=== PATIENT | female | born 1990 | race Caucasian/White ===

== ENCOUNTER 2019-08-08 15:57 | Emergency (ER) | payer MEDICAID ==
[~2019-08-08] VITALS: Ht 170.2 cm; Wt 68.0 kg
[2019-08-08 16:06] VITALS: BP 118/56
--- NOTE | 2019-08-08 16:43 | NUR ---
C/O VAGINAL BLEEDING X YESTERDAY CONSUMING 4 PADS MODERATELY SOAK WITH BROWNISH TO LIGHT RED COLORED VAGINAL DISCHARGE, RIGHT LOWER ABDOMINAL PAIN X TODAY. LMP 07/29/19. C/O COUGH X 1 MONTH .PT REPORTED SHE SMOKED WEED, DRANK ALCOHOL LAST NIGHT. MED HX: BREAST AUGMENTATION.PT AWAKE ,ALERT, AFIBRILE ,AMBULATORY WITH STEADY GAIT. NABS , NONTENDER ABDOMEN. PMHX NONE MEDS . NONE
[2019-08-08] MEDS ORDERED: KETOROLAC 30 MG/ML VIAL IVP ONE (17:00)
[2019-08-08] MEDS ORDERED: NACL 0.9% 1,000 ML IV ONE (17:00)
--- NOTE | 2019-08-08 17:19 | NUR ---
NAJMA MIKE AND TRIXIE AT BEDSIDE LAURA IV AND MEDS.
--- NOTE | 2019-08-08 17:30 | NUR ---
PT TO CT SCAN VIA WHEELCHAIR.
[2019-08-08 17:35] LABS: BASOPHILS # (AUTO) 0.1 K/uL (0.00-0.22); BASOPHILS % (AUTO) 0.9 % (0.0-2.0); EOSINOPHILS # (AUTO) 0.1 K/uL (0-0.4); EOSINOPHILS % (AUTO) 1.3 % (0.0-4.0); HEMATOCRIT 42.9 % (36-48); HEMOGLOBIN 14.5 g/dL (12.0-16.0); LYMPHOCYTES # (AUTO) 2.6 K/uL (2.5-16.5); LYMPHOCYTES % (AUTO) 36.6 % (20.5-51.1); MEAN CORPUSCULAR HEMOGLOBIN 32 pg (27-31); MEAN CORPUSCULAR HGB CONC 34 g/dL (33-37); MEAN CORPUSCULAR VOLUME 94.7 fL (80-94); MONOCYTES # (AUTO) 0.5 K/uL (0.8-1.0); MONOCYTES % (AUTO) 6.6 % (1.7-9.3); NEUTROPHILS # (AUTO) 3.8 K/uL (1.8-7.7); NEUTROPHILS % (AUTO) 54.6 % (42.2-75.2); PLATELET COUNT (AUTO) 251 K/uL (140-450); RED BLOOD CELL COUNT(AUTO) 4.53 MIL/uL (4.20-5.40); RED CELL DISTRIBUTION WIDTH 13.3 % (11.6-13.7)
--- NOTE | 2019-08-08 17:40 | NUR ---
PT BACK FROM CT SCAN VIA WHEELCHAIR.
[2019-08-08 17:50] VITALS: BP 120/60
[2019-08-08 17:55] LABS: ALBUMIN 4.8 g/dL (3.4-5.0); ANION GAP 14.2 (8-16); CARBON DIOXIDE 26.3 mmol/L (21-32); POTASSIUM 3.5 mmol/L (3.5-5.1); TOTAL BILIRUBIN 0.8 mg/dL (0.0-1.0)
[2019-08-08 18:04] LABS: APPEARANCE,URINE CLEAR (CLEAR); BILIRUBIN,URINE NEGATIVE (NEGATIVE); BLOOD, URINE 3+ (NEGATIVE); COLOR,URINE YELLOW (YELLOW); LEUKOCYTE ESTERASE ,URINE TRACE (NEGATIVE); NITRITE, URINE NEGATIVE (NEGATIVE); PH,URINE 6.5 (5.0-9.0); UGLUCOSE NEGATIVE (NEGATIVE)
[2019-08-08 18:18] LABS: RBC,URINE 50-80 /HPF (0-5)
--- NOTE | 2019-08-08 19:02 | NUR ---
GAVE REPORT TO NAJMA BATRES.
[2019-08-08] MEDS ORDERED: cefTRIAXone 1,000 MG VIAL ONE (19:13)
--- NOTE | 2019-08-08 19:17 | NUR ---
PELVIC DONE. IV ANTIBIOTICS STARTED
--- NOTE | 2019-08-08 19:50 | NUR ---
PT DISCHARGED BY DOCTOR.
--- NOTE | 2019-08-10 10:29 | NUR ---
Late entry. Confirmed with RN that Rocephin IV completed at 1950
== END 2019-08-08 19:50 | disposition home or self-care (01) ==
LOC: MED 15:57
DX: N73.9 Female pelvic inflammatory disease, unspecified (principal); F17.200 Nicotine dependence, unspecified, uncomplicated; F12.90 Cannabis use, unspecified, uncomplicated; Z98.890 Other specified postprocedural states; Z71.6 Tobacco abuse counseling
CPT/HCPCS: 36415; 74176; 80053; 81001; 81025; 85025; 87040; 87086; 87210; 96365; 96375; 99284; J0696; J1885; J7030

== ENCOUNTER 2021-03-16 14:08 | Emergency (ER) | payer SELFPAY ==
[~2021-03-16] VITALS: Ht 170.2 cm; Wt 81.6 kg
[2021-03-16 14:19] VITALS: BP 153/96
[2021-03-16] MEDS ORDERED: LORazepam 0.5 MG TAB PO ONE (14:35)
[2021-03-16 15:30] LABS: BASOPHILS # (AUTO) 0.1 K/uL (0.00-0.22); BASOPHILS % (AUTO) 0.7 % (0.0-2.0); EOSINOPHILS # (AUTO) 0.1 K/uL (0-0.4); EOSINOPHILS % (AUTO) 0.9 % (0.0-4.0); HEMATOCRIT 43.5 % (36-48); HEMOGLOBIN 14.7 g/dL (12.0-16.0); LYMPHOCYTES # (AUTO) 2.4 K/uL (2.5-16.5); LYMPHOCYTES % (AUTO) 31.7 % (20.5-51.1); MEAN CORPUSCULAR HEMOGLOBIN 30 pg (27-31); MEAN CORPUSCULAR HGB CONC 34 g/dL (33-37); MONOCYTES # (AUTO) 0.6 K/uL (0.8-1.0); MONOCYTES % (AUTO) 8.4 % (1.7-9.3); NEUTROPHILS # (AUTO) 4.5 K/uL (1.8-7.7); NEUTROPHILS % (AUTO) 58.3 % (42.2-75.2); PLATELET COUNT (AUTO) 245 K/uL (140-450); RED BLOOD CELL COUNT(AUTO) 4.84 MIL/uL (4.20-5.40); RED CELL DISTRIBUTION WIDTH 13.3 % (11.6-13.7); WHITE BLOOD COUNT (AUTO) 7.7 K/uL (4.8-10.8)
[2021-03-16 15:50] LABS: ALBUMIN 4.4 g/dL (3.4-5.0); ANION GAP 18.2 (8-16); CARBON DIOXIDE 22.3 mmol/L (21-32); CREATININE 0.9 mg/dL (0.6-1.3); POTASSIUM 3.5 mmol/L (3.5-5.1); TOTAL BILIRUBIN 0.5 mg/dL (0.0-1.0)
[2021-03-16] MEDS ORDERED: HYDR-637 PO (16:05)
[2021-03-16] MEDS ORDERED: ONDA-24 SL (16:05)
[2021-03-16] MEDS ORDERED: ONDANSETRON 4 MG ODT PO ONE (16:10)
[2021-03-16 16:53] VITALS: BP 130/85
== END 2021-03-16 16:53 | disposition short-term general hospital (02) ==
LOC: MED 14:08
DX: R07.89 Other chest pain (principal); F14.10 Cocaine abuse, uncomplicated; Z79.899 Other long term (current) drug therapy
CPT/HCPCS: 36415; 71045; 80053; 81002; 81025; 84484; 85025; 93005; 99285; Q0092; Q0162

== ENCOUNTER 2021-10-15 05:50 | Emergency (ER) | payer MEDICAID ==
[~2021-10-15] VITALS: Ht 170.2 cm; Wt 82.1 kg
[~2021-10-15 05:50] MED LIST: HYDR-637 PO; ONDA-188 SL
[2021-10-15 05:56] VITALS: BP 125/108
--- NOTE | 2021-10-15 06:02 | NUR ---
PT AMBULATED TO BED 6
[2021-10-15 06:08] VITALS: BP 125/108
--- NOTE | 2021-10-15 06:09 | NUR ---
30 Y/O FEMALE BIBS, C/O DOG BITE TO RIGHT HAND X1 HR AGO. APPROX 1 INCH LAC; BLEEDING CONTROLLED. CMS INTACT; 12/09 PAIN. A/OX4, GCS-15. UNLABORED BREATHING, SPEAKING IN FULL SENTENCES, PT IS AMBULATORY W/O ASSISTANCE. PT SEATED IN BED WITH HOB RAISED, BED IN LOWEST SETTING, AND RAIL UP X1. DENIES PMH/RX NKA
--- NOTE | 2021-10-15 06:09 | NUR ---
ER MD AT BEDSIDE PERFORMING PROCEDURE
[2021-10-15] MEDS ORDERED: IBUPROFEN 600 MG TAB PO ONE (06:25)
[2021-10-15] MEDS ORDERED: IBUP-2213 PO (06:27)
[2021-10-15] MEDS ORDERED: AMOX1TAB8 PO (06:27)
--- NOTE | 2021-10-15 07:17 | NUR ---
ANIMAL BITE REPORT FAXED TO [facility]
== END 2021-10-15 07:00 | disposition home or self-care (01) ==
LOC: MED 05:50
DX: S61.411A Laceration without foreign body of right hand, initial encounter (principal); W54.0XXA Bitten by dog, initial encounter; Y93.89 Activity, other specified; Y92.89 Other specified places as the place of occurrence of the external cause; Y99.8 Other external cause status
CPT/HCPCS: 90471; 90715; 99283

== ENCOUNTER 2021-10-17 11:29 | Emergency (ER) | payer MEDICAID ==
[~2021-10-17] VITALS: Ht 170.2 cm; Wt 81.6 kg
[~2021-10-17 11:29] MED LIST changes: +AMOX1TAB8 PO; +IBUP-2213 PO
[2021-10-17 11:41] VITALS: BP 126/99
[2021-10-17 12:22] VITALS: BP 123/74
== END 2021-10-17 12:22 | disposition home or self-care (01) ==
LOC: MED 11:29
DX: S61.451A Open bite of right hand, initial encounter (principal); Z79.1 Long term (current) use of non-steroidal anti-inflammatories (NSAID); Z79.2 Long term (current) use of antibiotics; Z79.899 Other long term (current) drug therapy; W54.0XXA Bitten by dog, initial encounter; Y93.89 Activity, other specified; Y92.89 Other specified places as the place of occurrence of the external cause; Y99.8 Other external cause status
CPT/HCPCS: 99283

== ENCOUNTER 2021-10-23 13:49 | Emergency (ER) | payer MEDICAID ==
[~2021-10-23] VITALS: Ht 170.2 cm; Wt 82.6 kg
[2021-10-23 13:57] VITALS: BP 123/67
--- NOTE | 2021-10-23 14:03 | NUR ---
PT AMB TO BED 3.
[2021-10-23] MEDS ORDERED: BACI28.43 TP (14:17)
[2021-10-23] MEDS: BACITRACIN OINT 500 UNITS/GM PKT TP ONE (14:23)
--- NOTE | 2021-10-23 14:35 | NUR ---
PT'S WOUND CLEANED AND DRESSED WITH NON-ADHERENT GAUZE ROLL AND WRAPPED WITH 1" LEN WRAP.
--- NOTE | 2021-10-23 14:50 | NUR ---
Patient discharged with v/s stable. Written and verbal after care instructions FOR WOUND CLOSURE REMOVAL, CARE AFTER AND ANIMAL BITE given and explained. Patient alert, oriented and verbalized understanding of instructions. Ambulatory with steady gait. All questions addressed prior to discharge. ID band removed. Patient advised to follow up with PMD. Rx of BACITRACIN ZINC given. Opportunity to ask questions provided and answered.
--- NOTE | 2021-10-23 14:53 | NUR ---
The patient's care was reviewed and supervised by Kalie Ornelas RN.
== END 2021-10-23 14:50 | disposition home or self-care (01) ==
LOC: MED 13:49
DX: S61.411D Laceration without foreign body of right hand, subsequent encounter (principal); Z48.02 Encounter for removal of sutures; Z79.2 Long term (current) use of antibiotics; Z79.1 Long term (current) use of non-steroidal anti-inflammatories (NSAID); Z79.899 Other long term (current) drug therapy; W22.8XXD Striking against or struck by other objects, subsequent encounter
CPT/HCPCS: 99282

== ENCOUNTER 2022-03-17 22:09 | Emergency (ER) | payer MEDICAID ==
[~2022-03-17] VITALS: Ht 170.2 cm; Wt 82.3 kg
[~2022-03-17 22:09] MED LIST changes: +BACI28.43 TP
[2022-03-17 22:24] VITALS: BP 100/87
--- NOTE | 2022-03-17 22:33 | NUR ---
WALKED IN C/O MID/ LOW BACK PAIN SINCE FRIDAY. PT STATES SHE ALSO STARTED HER PERIOD THE SAME DAY. +V X4/D. +DISCOMFORT WITH URINATION DESCRIBED A DULL ACHE. PT TOOK MOTRIN @1800 WITH NO RELIEF. PMH NONE
[2022-03-17 23:00] LABS: APPEARANCE,URINE CLEAR (CLEAR); BILIRUBIN,URINE NEGATIVE (NEGATIVE); BLOOD, URINE 2+ (NEGATIVE); COLOR,URINE YELLOW (YELLOW); LEUKOCYTE ESTERASE ,URINE TRACE (NEGATIVE); NITRITE, URINE NEGATIVE (NEGATIVE); UGLUCOSE NEGATIVE (NEGATIVE)
[2022-03-17 23:07] LABS: RBC,URINE 0-5 /HPF (0-5)
[2022-03-17] MEDS ORDERED: KETOROLAC 60 MG/2 ML VIAL IM ONE (23:40)
[2022-03-17] MEDS ORDERED: cefTRIAXone 1,000 MG in LIDOCAINE MPF 1% 2.1 ML IM ONE (23:40)
[2022-03-17] MEDS ORDERED: ONDANSETRON 4 MG ODT PO ONE (23:40)
[2022-03-17] MEDS ORDERED: CEPH-588 PO (23:43)
[2022-03-17] MEDS ORDERED: IBUP-1878 PO (23:43)
[2022-03-17] MEDS ORDERED: cefTRIAXone 1,000 MG VIAL ONE (23:54)
[2022-03-17] MEDS ORDERED: LIDOCAINE MPF 1% 5 ML ONE (23:55)
--- NOTE | 2022-03-17 23:58 | NUR ---
Patient taken to bed 4.
[2022-03-18 00:30] VITALS: BP 100/87
== END 2022-03-18 00:31 | disposition home or self-care (01) ==
LOC: MED 22:09
DX: N39.0 Urinary tract infection, site not specified (principal); M54.50 Low back pain, unspecified; Z79.899 Other long term (current) drug therapy
CPT/HCPCS: 81001; 81025; 87086; 96372; 99284; J0696; J1885; J2001; Q0162; 96374; 99283; 99285

== ENCOUNTER 2022-06-04 11:00 | Emergency (ER) | payer MEDICAID ==
[~2022-06-04] VITALS: Ht 170.2 cm; Wt 86.2 kg
[~2022-06-04 11:00] MED LIST changes: +CEPH-588 PO; +IBUP-1878 PO
[2022-06-04 11:04] VITALS: BP 128/65
[2022-06-04 12:41] LABS: BASOPHILS % (AUTO) 0.8 % (0.0-2.0); EOSINOPHILS # (AUTO) 0.2 K/uL (0-0.4); EOSINOPHILS % (AUTO) 3.4 % (0.0-4.0); HEMATOCRIT 38.8 % (36-48); LYMPHOCYTES # (AUTO) 1.6 K/uL (2.5-16.5); LYMPHOCYTES % (AUTO) 30.5 % (20.5-51.1); MEAN CORPUSCULAR HEMOGLOBIN 31 pg (27-31); MEAN CORPUSCULAR HGB CONC 34 g/dL (33-37); MEAN CORPUSCULAR VOLUME 92.4 fL (80-94); MONOCYTES # (AUTO) 0.4 K/uL (0.8-1.0); NEUTROPHILS # (AUTO) 3.1 K/uL (1.8-7.7); NEUTROPHILS % (AUTO) 57.3 % (42.2-75.2); PLATELET COUNT (AUTO) 212 K/uL (140-450); RED CELL DISTRIBUTION WIDTH 12.3 % (11.6-13.7); WHITE BLOOD COUNT (AUTO) 5.3 K/uL (4.8-10.8)
[2022-06-04 14:48] LABS: APPEARANCE,URINE CLEAR (CLEAR); BILIRUBIN,URINE NEGATIVE (NEGATIVE); BLOOD, URINE 2+ (NEGATIVE); COLOR,URINE YELLOW (YELLOW); LEUKOCYTE ESTERASE ,URINE NEGATIVE (NEGATIVE); NITRITE, URINE NEGATIVE (NEGATIVE); UGLUCOSE NEGATIVE (NEGATIVE)
[2022-06-04 15:02] LABS: CALCIUM OXALATE CRYSTALS,UR 0-10 /HPF (None Seen); OTHER CASTS, URINE None Seen /LPF (None Seen); WBC,URINE 0-5 /HPF (0-5)
[2022-06-04] MEDS ORDERED: ACET-10509 PO (15:03)
[2022-06-04 15:22] VITALS: BP 122/79
--- NOTE | 2022-06-04 15:22 | NUR ---
Patient discharged with v/s stable. Written and verbal after care instructions given and explained. Patient alert, oriented and verbalized understanding of instructions. Ambulatory with steady gait. All questions addressed prior to discharge. ID band removed. Patient advised to follow up with PMD. Rx of TYLENOL EXTRA STRENGTH given. Patient educated on indication of medication including possible reaction and side effects. Opportunity to ask questions provided and answered.
== END 2022-06-04 15:22 | disposition home or self-care (01) ==
LOC: MED 11:00
DX: O20.0 Threatened abortion (principal); Z3A.08 8 weeks gestation of pregnancy
CPT/HCPCS: 36415; 76817; 81001; 84702; 85025; 86900; 86901; 87086; 99284; Q0092

== ENCOUNTER 2023-02-06 18:43 | Emergency (ER) | payer MEDICAID ==
[~2023-02-06] VITALS: Ht 170.2 cm; Wt 66.3 kg
[~2023-02-06 18:43] MED LIST changes: +ACET-10509 PO
[2023-02-06 19:09] VITALS: BP 117/68; PULSE 122; RESP 20; TEMP 98.4; O2SAT 100
[2023-02-06] MEDS ORDERED: IBUPROFEN 600 MG TAB PO ONE (20:05)
[2023-02-06] MEDS ORDERED: IBUP-2213 PO (20:50)
[2023-02-06] MEDS ORDERED: BACI-418 TP (20:50)
[2023-02-06] MEDS ORDERED: IBUPROFEN 600 MG TAB ONE (21:29)
== END 2023-02-06 21:34 | disposition home or self-care (01) ==
LOC: MED 18:43
DX: S63.501A Unspecified sprain of right wrist, initial encounter (principal); Z79.899 Other long term (current) drug therapy; V00.848A Other accident with standing micro-mobility pedestrian conveyance, initial encounter; Y93.89 Activity, other specified; Y92.89 Other specified places as the place of occurrence of the external cause; Y99.8 Other external cause status
CPT/HCPCS: 73110; 90715; 99283

== ENCOUNTER 2023-07-26 08:08 | Emergency (ER) | payer SELFPAY ==
[~2023-07-26] VITALS: Ht 170.2 cm; Wt 54.4 kg
[~2023-07-26 08:08] MED LIST changes: +BACI-418 TP
[2023-07-26 08:13] VITALS: BP 117/80; PULSE 117; RESP 20; TEMP 98.3; O2SAT 98
[2023-07-26 08:59] VITALS: BP 121/82; PULSE 99; TEMP 98; O2SAT 100
[2023-07-26] MEDS ORDERED: SIME80TA41 PO (10:18)
[2023-07-26] MEDS ORDERED: PYR100 PO (10:18)
[2023-07-26] MEDS ORDERED: ACET-2619 PO (10:18)
[2023-07-26 10:27] LABS: APPEARANCE,URINE SLIGHTLY CLOUDY (CLEAR); BILIRUBIN,URINE NEGATIVE (NEGATIVE); BLOOD, URINE NEGATIVE (NEGATIVE); COLOR,URINE YELLOW (YELLOW); LEUKOCYTE ESTERASE ,URINE NEGATIVE (NEGATIVE); NITRITE, URINE NEGATIVE (NEGATIVE); PROTEIN,URINE NEGATIVE (NEGATIVE); UGLUCOSE NEGATIVE (NEGATIVE); UROBILINOGEN,URINE 0.2 EU/dL (0.2 - 1)
[2023-07-28] MEDS ORDERED: METR-520 PO (16:56)
== END 2023-07-26 10:44 | disposition home or self-care (01) ==
LOC: MED 08:08
DX: N76.0 Acute vaginitis (principal); B96.89 Other specified bacterial agents as the cause of diseases classified elsewhere; R30.0 Dysuria; Z79.899 Other long term (current) drug therapy
CPT/HCPCS: 81003; 81025; 87070; 87110; 87205; 87210; 87299; 87491; 99284